=== PATIENT | male | born 1930 | race Caucasian/White ===

== ENCOUNTER → 2016-07-23 | Outpatient (CLI) | payer MEDICARE, BC | LOC: LAB 10:00 | DX: C18.0 Malignant neoplasm of cecum (principal) ==

== ENCOUNTER → 2017-02-10 | Outpatient (CLI) | payer MEDICARE, BC | LOC: RAD 09:25 | DX: C18.9 Malignant neoplasm of colon, unspecified (principal) | CPT/HCPCS: Q9967 ==

== ENCOUNTER → 2017-08-10 | Outpatient (CLI) | payer MEDICARE, BC ==
[2017-08-10 11:50] LABS: EOS # 0.4 (0.04-0.40); HEMATOCRIT 45.1 % (42.0-52.0); HEMOGLOBIN 15.3 g/dL (13.5-18.0); MEAN CELL VOLUME 95 fl (78-100); MEAN CORPUSCULAR HEMOGLOBIN 32 pg (27-31); MEAN CORPUSCULAR HGB CONC 34 g/dL (33-37); MONO # 0.7 (0.20-0.80); NEU # 2.8 (1.40-6.50); PLATELET COUNT 104 K/mm3 (130-400); RED BLOOD COUNT 4.75 M/mm3 (4.20-5.60); RED CELL DISTRIBUTION WIDTH 14.9 % (11.5-14.5); WHITE BLOOD COUNT 5.9 K/mm3 (4.8-10.8)
[2017-08-10 11:52] LABS: EOS % 6.9 % (0.0-4.0); MEAN PLATELET VOLUME 12.1 fl (7.4-10.4)
[2017-08-10 12:18] LABS: BUN/CREATININE RATIO 18.8 (6.0-26.0); CALCIUM 9.1 mg/dL (8.4-10.2); POTASSIUM 4.2 mmol/L (3.6-5.0); TOTAL BILIRUBIN 0.8 mg/dL (0.2-1.3); TOTAL PROTEIN 7.9 g/dL (6.3-8.2)
== END ==
LOC: LAB 11:32
PROVIDERS: Internal Medicine
DX: C18.0 Malignant neoplasm of cecum (principal)